=== PATIENT | female | born 1960 | race Caucasian/White ===

== ENCOUNTER 2016-09-05 07:23 | Emergency (ER) | payer OTHER ==
[~2016-09-05 07:23] MED LIST: ALBUTEROL17 GM INH; BACTROBAN22 GM TP; BENZONATATE PO; CELEXA20 MG PO; CIPRO PO; DIABETIC PO; EFFEXOR XR75 MG PO; ESTRACE PO; ESTRACE0.5 MG PO; ETODOLAC300 MG PO; FLOMAX0.4 M1 DOB; GLUCOPHAGE500 M1 PO; HYDROXYZINE HCL25 M1 PO; IBUPROFEN800 MG; LEVAQUIN PO; LORTAB 5/500 TA1 TA1 PO; LORTAB 5/500 TA1 TA2; METFORMIN PO; MIRAPEX PO; PHENERGAN25 M1; PRAVASTATIN SOD40 MG PO; PREVACID PO; SIMPLY SLEEP; VOLTAREN75 MG PO; ZITHROMAX PO; [UNRECOGNIZED DRUG - REMARK]
[2016-09-05] MEDS ORDERED: INVOKANA300 MG (07:29)
== END 2016-09-05 08:25 | disposition home or self-care (01) ==
LOC: SED 07:23
DX: H05.221 Edema of right orbit (principal); E11.9 Type 2 diabetes mellitus without complications
CPT/HCPCS: 99283